=== PATIENT | male | born 1940 | race Caucasian/White ===

== ENCOUNTER 2017-08-08 07:10 | Inpatient (IN) ==
--- NOTE | 2017-08-08 07:21 | Emergency Department Note ---
Disposition Clinical Impression: Failure of outpatient treatment, Hypoxia, New onset seizure Community acquired pneumonia Qualifiers: Laterality: unspecified laterality Qualified Code(s): J18.9 - Pneumonia, unspecified organism Pulmonary embolism Qualifiers: Pulmonary embolism type: other Chronicity: acute Acute cor pulmonale presence: without acute cor pulmonale Qualified Code(s): I26.99 - Other pulmonary embolism without acute cor pulmonale Disposition: Admitted As Inpatient Condition: Fair Referrals: NONE,PCP [Non-Partnered Physician] - Forms: ED Satisfaction Letter Seizure HPI - General Chief Complaint: ED Seizure Stated Complaint: possible seizure Time Seen by Provider: 08/08/17 07:17 Source: family, EMS, other (Home nurse) Mode of arrival: EMS Limitations: altered mental status, physical limitation Nursing Notes Reviewed: Yes Vital Signs Reviewed: Yes - History of Present Illness HPI Narrative: Patient reportedly has been in his baseline health. He was evaluated 7-10 days ago for possible pneumonia and had x-rays of his chest and back. He is completing course of doxycycline after receiving Rocephin for a right lower lobe pneumonia. He this morning had been taken to the bathroom and was sitting on a toilet seat for an aid to shave him. Reportedly got a pained expression on his face leaned forward, yelled and then extended back against the back of the toilet and was thrashing around for a couple minutes. He was not responding during that time and he then was sluggish for 7-8 minutes. He did not bite his tongue or have any bladder or bowel incontinence. He has no history of any similar type episodes. His reported to otherwise have "no after effects". He did not sustain any injury other than pushing his back against the tank of the toilet. He did not fall off the toilet or sustain other injury. He was not conversive for the caretakers but did start to talk for the transport here. On arrival here he is smiling and answering simple questions. He denies headache or visual changes. He denies neck pain, back pain, chest pain or shortness of breath. He is saturating however at 88-90% on 2 L and he is not usually on home oxygen. He denies abdominal pain or nausea. He denies any extremity complaints. He does follow all commands. He will turn to look at his here and is able to articulate that he does not know who it is. This reportedly is new for him. Family states there is a strong family history of Alzheimer's and he has been declining for 6 years. He has signed a living will which they clearly described as a DNR CCA status. The family member here, spouse, states that she is POA. Pt Subjective Complaint: possible seizure Onset (ago): Just [employer] Description of Episode: loss of consciousness, tonic-clonic movement -: minutes(s) Witnessed: yes - by bystander Associated trauma secondary to event: No Seizure History: none Place: home Possible Precipitating Event: none Associated symptoms: Reports: denies other symptoms, confusion (Chronic with severe Alzheimer's). Denies: chest pain, cough, diaphoresis, fever/chills, loss of appetite, malaise, rash, shortness of breath, syncope, weakness Pain Scale: 0 Treatments prior to arrival: none - Related Data Home Medications Medication Instructions Recorded Confirmed BuPROPion XL (24 HR) [Wellbutrin 150 mg PO DAILY 08/08/17 08/08/17 XL] Doxycycline 100 mg PO BID 08/08/17 08/08/17 Sertraline [Zoloft] 50 mg PO DAILY 08/08/17 08/08/17 Allergies Allergy/AdvReac Type Severity Reaction Status Date / Time No Known Allergies Allergy Verified 06/29/17 22:21 All systems ED: reviewed and negative except as stated. Past Medical History - Past Medical History Source: old records reviewed, obtained from family, nursing notes reviewed Medical history: Reports: dementia, kidney stones, other Surgical history: Reports: no surgical history Psychiatric history: Reports: depression - Social History Smoking Status: Never smoker Smokeless Tobacco Status: No Alcohol use: Reports: none Drug use: Reports: none Physical Exam - General Limitations: altered mental status, physical limitation, age, other (Severe Alzheimer's) General appearance: alert, in no apparent distress - Head Head exam: atraumatic, normocephalic, normal inspection - Eye Eye exam: Present: normal appearance, PERRL, EOMI. Absent: scleral icterus, conjunctival injection - ENT ENT exam: normal exam, normal oropharynx, mucous membranes moist - Neck Neck exam: Present: normal inspection, full ROM, trachea midline - Chest Chest inspection: Present: normal inspection, symmetric chest wall rise, other ( Small linear contusion in the mid scapular region of his back.) - Respiratory Respiratory exam: Present: normal lung sounds bilaterally. Absent: respiratory distress, wheezes, prolonged expiratory phase - Cardiovascular Cardiovascular exam: Present: regular rate, normal rhythm, normal heart sounds. Absent: tachycardia - Abdominal Exam Abdominal exam: Present: soft, Non-Tender, normal bowel sounds. Absent: tenderness, distention, guarding, rebound, rigidity - Extremities Exam Extremities exam: Present: normal inspection, full ROM, normal capillary refill. Absent: tenderness, pedal edema - Expanded Lower Extremity Exam Neurovascular/Tendon exam: Present: normal capillary refill. Absent: motor deficit, sensory deficit, tendon deficit Gait: not tested/not observed - Back Exam Back exam: Present: normal inspection, full ROM, other (Small linear contusion in the mid scapular region without tenderness.). Absent: tenderness, muscle spasm, paraspinal tenderness, vertebral tenderness - Neurological Exam Neurological exam: Present: alert, other (Patient is smiling, interactive and answering simple questions.). Absent: oriented X3, motor sensory deficit - Psychiatric Psychiatric exam: Present: normal affect, normal mood - Skin Skin exam: Present: warm, dry, intact, normal color. Absent: rash, diaphoresis , pallor Course Course Narrative: Care has been discussed with the patien's and his nurse/professor/nurse anesthetist. He appears to have a persistent pneumonia with failure of outpatient treatment and hypoxia. He has been written for IV fluids, blood cultures, lactic acid as well as starting Rocephin and azithromycin. CT head does not appear to show bleed, shift, mass, edema or other acute structural process. They understand that he will ultimately need further inpatient observation for his respiratory status during which time he can be observed with neuro checks. 0920: Patient has completed a CT PE study with a right sided pulmonary embolism per radiology read. He has been written for DuoNeb aerosol as well as started on Lovenox. All results were discussed with his , nurse professor/nurse anesthetist as well as his daughter who has arrived. They are comfortable with his continued treatment at this facility. I talked to him about possibly anticoagulation in an end-stage Alzheimer's patient due to the risks of anticoagulation. Understanding the need to talk about the risk benefit with Dr. Neville to determine the most practical and appropriate treatment. I discussed care with Dr. Neville who agrees with observation at this facility with continuation of the Lovenox twice a day as well as continued IV fluids, antibiotics and seizure precautions. Verbal orders have been obtained for his admission. Vital Signs Temperature 98.0 F 08/08/17 07:14 Pulse Rate 78 08/08/17 07:14 Respiratory Rate 18 08/08/17 07:14 Blood Pressure 128/77 08/08/17 07:14 O2 Sat by Pulse Oximetry 90 08/08/17 07:14 Temperature 98.0 F 08/08/17 07:14 Pulse Rate 76 08/08/17 09:00 Respiratory Rate 18 08/08/17 09:00 Blood Pressure 124/76 08/08/17 09:00 O2 Sat by Pulse Oximetry 95 08/08/17 09:00 Oxygen Delivery Oxygen Delivery Nasal Cannula Seizure - Differential Diagnosis Likely: generalized seizure, new onsite seizure - Medical Records Medical records reviewed: Yes I reviewed the patient's medical records. XR/XR chest 2V IMPRESSION: Small bilateral pleural effusions along with mild bibasilar likely atelectasis or infiltrates. D/ / 07/28/2017 14:16:26 Marlon Coleman MD / brea The patient also had received 2 view x-ray of the abdomen as well as thoracic and lumbar spine imaging that were all unremarkable. He had stable degenerative changes on the spine. - Lab Data Lab results reviewed: Yes I reviewed the patient's lab results. Result diagrams: 08/08/17 07:44 08/08/17 07:44 Lab Results 08/08/17 08/08/17 08/08/17 Range/Units 07:44 07:44 07:44 WBC 7.3 (4.3-11.1) K/mcL RBC 4.75 (4.19-5.50) M/mcL Hgb 14.9 (12.9-16.9) g/dL Hct 44.6 (37.5-50.1) % MCV 93.9 (83.0-100.0) fL MCH 31.4 (28.0-33.3) pg MCHC 33.4 (31.6-35.5) g/dL RDW 12.7 (11.5-14.5) % Plt Count 236 (140-400) K/mcL MPV 8.9 L (9.4-12.4) fL Immature Gran % 3.5 (0-4) % Seg Neutrophils % 76.2 % Lymphocytes % 14.2 % Monocytes % 4.2 % Eosinophils % 1.6 % Basophils % 0.3 % Neutrophils # 5.6 (1.6-8.9) K/mcL Lymphocytes # 1.0 (0.6-4.6) K/mcL Monocytes # 0.3 (0.0-1.3) K/mcL Eosinophils # 0.1 (0.0-0.6) K/mcL Basophils # 0.0 (0.0-0.2) K/mcL PT 11.2 (9.4-12.1) Seconds INR 1.0 APTT 24.2 L (26.0-36.0) Seconds D-Dimer (0-500) ng/mLFEU VBG Lactic Acid (0.5-2.2) mmol/L Sodium 141 (136-145) mEq/L Potassium 4.2 (3.5-4.5) mEq/L Chloride 108 (98-109) mEq/L Carbon Dioxide 21 (19-29) mEq/L BUN 16 (8-26) mg/dL Creatinine 1.18 (0.72-1.25) mg/dL Est GFR ( Amer) > 60 (> 60) Est GFR (Non-Af Amer) > 60 (> 60) BUN/Creatinine Ratio 14 (6-26) Glucose 118 H (70-99) mg/dL Calculated Osmolality 294 (280-300) Calcium 9.0 (8.6-10.8) mg/dL Total Bilirubin 0.6 (0.2-1.2) mg/dL Direct Bilirubin 0.2 (0.0-0.5) mg/dL Indirect Bilirubin 0.4 (0.0-1.2) mg/dL AST 31 (5-34) Units/L ALT 35 (0-55) Units/L Alkaline Phosphatase 64 (38-126) Units/L Troponin I (0-0.03) ng/mL Serum Total Protein 6.7 (6.0-8.3) g/dL Albumin 3.4 L (3.5-5.0) g/dL Globulin 3.3 (2.4-3.5) g/dL Albumin/Globulin Ratio 1.0 L (1.1-2.2) Urine Color (Yellow) Urine Clarity (Clear) Urine pH (5.0-8.0) pH Units Ur Specific [place] (1.010-1.025) Urine Protein (Neg-Trace) mg/dL Urine Glucose (UA) (Normal) mg/dL Urine Ketones (Negative) mg/dL Urine Blood (Negative) Urine Nitrite (Negative) Urine Bilirubin (Negative) Urine Urobilinogen (Normal) mg/dL Ur Leukocyte Esterase (Negative) Urine Microscopic RBC (0-3) per hpf Urine Microscopic WBC (0-3) per hpf Ur Squamous Epith Cells (None-Few) per lpf Amorphous Sediment (Few) Urine Bacteria (None-Few) per hpf Hyaline Casts (None-Few) per lpf Urine Mucus (Few) Ur Culture Indicated? (NO) 08/08/17 08/08/17 08/08/17 Range/Units 07:44 07:44 08:21 WBC (4.3-11.1) K/mcL RBC (4.19-5.50) M/mcL Hgb (12.9-16.9) g/dL Hct (37.5-50.1) % MCV (83.0-100.0) fL MCH (28.0-33.3) pg MCHC (31.6-35.5) g/dL RDW (11.5-14.5) % Plt Count (140-400) K/mcL MPV (9.4-12.4) fL Immature Gran % (0-4) % Seg Neutrophils % % Lymphocytes % % Monocytes % % Eosinophils % % Basophils % % Neutrophils # (1.6-8.9) K/mcL Lymphocytes # (0.6-4.6) K/mcL Monocytes # (0.0-1.3) K/mcL Eosinophils # (0.0-0.6) K/mcL Basophils # (0.0-0.2) K/mcL PT (9.4-12.1) Seconds INR APTT (26.0-36.0) Seconds D-Dimer 11804 H (0-500) ng/mLFEU VBG Lactic Acid 2.3 H (0.5-2.2) mmol/L Sodium (136-145) mEq/L Potassium (3.5-4.5) mEq/L Chloride (98-109) mEq/L Carbon Dioxide (19-29) mEq/L BUN (8-26) mg/dL Creatinine (0.72-1.25) mg/dL Est GFR ( Amer) (> 60) Est GFR (Non-Af Amer) (> 60) BUN/Creatinine Ratio (6-26) Glucose (70-99) mg/dL Calculated Osmolality (280-300) Calcium (8.6-10.8) mg/dL Total Bilirubin (0.2-1.2) mg/dL Direct Bilirubin (0.0-0.5) mg/dL Indirect Bilirubin (0.0-1.2) mg/dL AST (5-34) Units/L ALT (0-55) Units/L Alkaline Phosphatase (38-126) Units/L Troponin I 0.00 (0-0.03) ng/mL Serum Total Protein (6.0-8.3) g/dL Albumin (3.5-5.0) g/dL Globulin (2.4-3.5) g/dL Albumin/Globulin Ratio (1.1-2.2) Urine Color (Yellow) Urine Clarity (Clear) Urine pH (5.0-8.0) pH Units Ur Specific [place] (1.010-1.025) Urine Protein (Neg-Trace) mg/dL Urine Glucose (UA) (Normal) mg/dL Urine Ketones (Negative) mg/dL Urine Blood (Negative) Urine Nitrite (Negative) Urine Bilirubin (Negative) Urine Urobilinogen (Normal) mg/dL Ur Leukocyte Esterase (Negative) Urine Microscopic RBC (0-3) per hpf Urine Microscopic WBC (0-3) per hpf Ur Squamous Epith Cells (None-Few) per lpf Amorphous Sediment (Few) Urine Bacteria (None-Few) per hpf Hyaline Casts (None-Few) per lpf Urine Mucus (Few) Ur Culture Indicated? (NO) 08/08/17 Range/Units 08:24 WBC (4.3-11.1) K/mcL RBC (4.19-5.50) M/mcL Hgb (12.9-16.9) g/dL Hct (37.5-50.1) % MCV (83.0-100.0) fL MCH (28.0-33.3) pg MCHC (31.6-35.5) g/dL RDW (11.5-14.5) % Plt Count (140-400) K/mcL MPV (9.4-12.4) fL Immature Gran % (0-4) % Seg Neutrophils % % Lymphocytes % % Monocytes % % Eosinophils % % Basophils % % Neutrophils # (1.6-8.9) K/mcL Lymphocytes # (0.6-4.6) K/mcL Monocytes # (0.0-1.3) K/mcL Eosinophils # (0.0-0.6) K/mcL Basophils # (0.0-0.2) K/mcL PT (9.4-12.1) Seconds INR APTT (26.0-36.0) Seconds D-Dimer (0-500) ng/mLFEU VBG Lactic Acid (0.5-2.2) mmol/L Sodium (136-145) mEq/L Potassium (3.5-4.5) mEq/L Chloride (98-109) mEq/L Carbon Dioxide (19-29) mEq/L BUN (8-26) mg/dL Creatinine (0.72-1.25) mg/dL Est GFR ( Amer) (> 60) Est GFR (Non-Af Amer) (> 60) BUN/Creatinine Ratio (6-26) Glucose (70-99) mg/dL Calculated Osmolality (280-300) Calcium (8.6-10.8) mg/dL Total Bilirubin (0.2-1.2) mg/dL Direct Bilirubin (0.0-0.5) mg/dL Indirect Bilirubin (0.0-1.2) mg/dL AST (5-34) Units/L ALT (0-55) Units/L Alkaline Phosphatase (38-126) Units/L Troponin I (0-0.03) ng/mL Serum Total Protein (6.0-8.3) g/dL Albumin (3.5-5.0) g/dL Globulin (2.4-3.5) g/dL Albumin/Globulin Ratio (1.1-2.2) Urine Color Yellow (Yellow) Urine Clarity Clear (Clear) Urine pH 5.0 (5.0-8.0) pH Units Ur Specific [place] >= 1.030 H (1.010-1.025) Urine Protein 30 H (Neg-Trace) mg/dL Urine Glucose (UA) Normal (Normal) mg/dL Urine Ketones Negative (Negative) mg/dL Urine Blood Trace-intact H (Negative) Urine Nitrite Negative (Negative) Urine Bilirubin Negative (Negative) Urine Urobilinogen Normal (Normal) mg/dL Ur Leukocyte Esterase Negative (Negative) Urine Microscopic RBC 3-5 H (0-3) per hpf Urine Microscopic WBC 0-3 (0-3) per hpf Ur Squamous Epith Cells Few (None-Few) per lpf Amorphous Sediment Moderate H (Few) Urine Bacteria Few (None-Few) per hpf Hyaline Casts Few (None-Few) per lpf Urine Mucus Moderate H (Few) Ur Culture Indicated? NO (NO) - Radiology Data Radiology results reviewed: Yes I reviewed the patient's radiology results. Single view chest x-ray is performed. This shows some hypoinflation with patchy infiltrates consistent with multifocal pneumonia. Do not see evidence for failure, effusion or pneumothorax. The cardiac silhouette is not significantly enlarged. This is on my interpretation. CT head is performed. This is reviewed on bone and soft tissue windows. There is no evidence for acute intracranial bleed, shift, mass or edema. Patient does have cerebral atrophy present. Mastoids and sinuses appear normal. There is no fracture evident. This is on my interpretation. CT chest was performed with IV contrast. This demonstrates multifocal patchy infiltrates primarily in the bases. I do not see evidence for acute Impressions Chest X-Ray 08/08/17 07:26 IMPRESSION: 1. Poorly expanded lungs. 2. Left basilar opacity is likely atelectasis. D/ / Jaiden Tirado MD / Jaiden Tirado MD Interpreting Provider: Jaiden Tirado MD Head CT 08/08/17 07:26 IMPRESSION: 1. No acute intracranial abnormality. 2. Mild periventricular and subcortical white matter hypodensities are commonly due to chronic small vessel ischemic disease. D/ / Jaiden Tirado MD / Jaiden Tirado MD Interpreting Provider: Jaiden Tirado MD Chest CTA 08/08/17 08:22 IMPRESSION: 1. Acute pulmonary embolism at the 1st branch of the right main pulmonary artery. No evidence of right heart strain. 2. Atelectasis in the bilateral lower lungs. 3. Esophagus appears thickened. This could be due to esophagitis. Upper endoscopy may be considered. Critical results were called by Dr. Jaiden Tirado to Dr. Azael Bertrand on 08/08/2017 at 09:15. D/ / Jaiden Tirado MD / Jaiden Tirado MD Interpreting Provider: Jaiden Tirado MD pulmonary embolism, significant effusion or pneumothorax. This is on my interpretation. - EKG Data EKG attestation: Yes I reviewed and interpreted this EKG. EKG shows normal: sinus rhythm, intervals, QRS complexes, ST-T waves Rate: normal (76) [place]/QRS: left axis deviation Interpretation: no acute changes Critical Care Time Critical Care Time: Yes Total Critical Care Time: 70 Attestation: As this patient did present with signs and symptoms of potential life- threatening illness requiring my urgent intervention, total critical care time in this patient's care has been 70 minutes, not withstanding separately reportable procedures.
[2017-08-08 07:54] LABS: Basophils % 0.3 %; Eosinophils # 0.1 K/mcL (0.0-0.6); Eosinophils % 1.6 %; Hematocrit 44.6 % (37.5-50.1); Hemoglobin 14.9 g/dL (12.9-16.9); Immature Granulocytes % 3.5 % (0-4); Lymphocytes % 14.2 %; Mean Corpuscular HGB Conc 33.4 g/dL (31.6-35.5); Mean Corpuscular Hemoglobin 31.4 pg (28.0-33.3); Mean Corpuscular Volume 93.9 fL (83.0-100.0); Mean Platelet Volume 8.9 fL (9.4-12.4); Monocytes # 0.3 K/mcL (0.0-1.3); Monocytes % 4.2 %; Neutrophils # 5.6 K/mcL (1.6-8.9); Platelet Count 236 K/mcL (140-400); Red Blood Count 4.75 M/mcL (4.19-5.50); Red Cell Distribution Width 12.7 % (11.5-14.5); Segmented Neutrophils % 76.2 %
[2017-08-08 07:58] LABS: Prothrombin Time 11.2 Seconds (9.4-12.1)
[2017-08-08 08:01] LABS: Activated Partial Thrombo Time 24.2 Seconds (26.0-36.0)
[2017-08-08] MEDS ORDERED: Azithromycin 250 MG TABLET PO ONE (08:07)
[2017-08-08] MEDS ORDERED: 0.9 % Sodium Chloride 1,000 ML IVC SCH ×2 (08:15→11:05)
[2017-08-08 08:19] LABS: Alanine Aminotransferase 35 Units/L (0-55); Albumin 3.4 g/dL (3.5-5.0); Alkaline Phosphatase 64 Units/L (38-126); Aspartate Amino Transferase 31 Units/L (5-34); BUN/Creatinine Ratio 14 (6-26); Bilirubin,Direct 0.2 mg/dL (0.0-0.5); Bilirubin,Indirect 0.4 mg/dL (0.0-1.2); Bilirubin,Total 0.6 mg/dL (0.2-1.2); Blood Urea Nitrogen 16 mg/dL (8-26); Carbon Dioxide 21 mEq/L (19-29); Chloride 108 mEq/L (98-109); Globulin 3.3 g/dL (2.4-3.5); Glucose 118 mg/dL (70-99); Osmolality,Calculated 294 (280-300); Potassium 4.2 mEq/L (3.5-4.5); Sodium 141 mEq/L (136-145); Total Protein 6.7 g/dL (6.0-8.3); eGFR For African Americans > 60 (> 60); eGFR For Non-African Americans > 60 (> 60)
[2017-08-08 08:41] LABS: Bilirubin,Urine Negative (Negative); Blood,Urine Trace-intact (Negative); Clarity,Urine Clear (Clear); Color,Urine Yellow (Yellow); Glucose,Urine (UA) Normal (Normal); Ketones,Urine Negative (Negative); Leukocyte Esterase,Urine Negative (Negative); Nitrite,Urine Negative (Negative); Protein,Urine 30 mg/dL (Neg-Trace); Specific Gravity,Urine >= 1.030 (1.010-1.025); Urobilinogen,Urine Normal (Normal)
[2017-08-08 08:56] LABS: Amorphous Sediment,Urine Moderate (Few); Bacteria,Urine Few per hpf (None-Few); Hyaline Casts,Urine Few per lpf (None-Few); Mucus,Urine Moderate (Few); Squamous Epithelial Cell,Urine Few per lpf (None-Few); WBC,Urine 0-3 per hpf (0-3)
[2017-08-08] MEDS ORDERED: Ipratropium/Albuterol Neb 3 ML IH ONE (09:20)
[2017-08-08] MEDS ORDERED: *HR* Enoxaparin 100 MG/ML SYRINGE SQ STA (09:20)
[2017-08-08] MEDS ORDERED: Naloxone 0.4 MG/ML INJ IVP PRN (11:05)
[2017-08-08] MEDS ORDERED: MOM Conc 10 ML UD.LIQ PO PRN (11:05)
[2017-08-08] MEDS ORDERED: Ondansetron 4 MG/2 ML VIAL IVP PRN (11:05)
[2017-08-08] MEDS ORDERED: Acetaminophen 325 MG TABLET PO PRN (11:05)
[2017-08-08] MEDS ORDERED: Ipratropium/Albuterol Neb 3 ML IH SCH (11:05)
[2017-08-08] MEDS ORDERED: Albuterol 2.5 MG/3 ML NEBULIZER IH PRN (11:05)
[2017-08-08] MEDS ORDERED: *HR* LORazepam 2 MG/ML VIAL IVP PRN (11:05)
--- NOTE | 2017-08-08 13:21 | Internal Med History&Physical ---
Date of Encounter: 08/08/17 Time of Encounter: 12:45 Assessment and Plan (1) Pulmonary embolism Current visit: Yes Status: Acute Etiology not determined. Will order hypercoagulable workup labs. He has been started on Lovenox through emergency room. I will give him Xarelto. Qualifiers: Pulmonary embolism type: other Chronicity: acute Acute cor pulmonale presence: without acute cor pulmonale Qualified Code(s): I26.99 - Other pulmonary embolism without acute cor pulmonale (2) New onset seizure Current visit: Yes Status: Acute Possibly secondary to hypoxia from PE. Will observe without starting AED at this time. Internal Medicine - H&P: HPI Chief complaint: Seizure with syncope Admitted From: Home Plans for Post Hospital Care: Home History of present illness: Mr. Garcia is a 77 year old male who was brought to the hospital after caregivers reported he had a sudden scream as if in pain followed by a seizure and postictal condition while having routine care given by providers at his [facility]. He was brought to emergency room and evaluated. There was mild abrasion of the skin of the back from the event. D-dimer returned markedly elevated and CTA of chest showed right main pulmonary artery embolism. He was given therapeutic dose Lovenox and admitted to [facility] floor for ongoing care needs. He has advanced dementia and could not supply any history. His and family supply the history. They report no past history of DVT pulmonary emboli or seizures. They report no change in his activity level and states he walks frequently in the house. He has not had noticeable edema. He does not have documented malignancies. There is no family history of coagulopathy. The patient's mother had gastric cancer. Past Med Surg Social Fam HX - Past Medical History Medical history: dementia, kidney stones, other Psychiatric history: depression - Past Surgical History Surgical History: no surgical history - Social History Smoking Status: Never smoker Smokeless Tobacco Status: No Alcohol use: none Drug use: none Internal Medicine - H&P: Meds BuPROPion XL (24 HR) [Wellbutrin XL] 150 mg PO DAILY 08/08/17 [History] Doxycycline 100 mg PO BID 08/08/17 [History] Sertraline [Zoloft] 50 mg PO DAILY 08/08/17 [History] 3 Allergy/AdvReac Type Severity Reaction Status Date / Time No Known Allergies Allergy Verified 06/29/17 22:21 All Systems PM: A 10-system review of systems was performed and is negative for pertinent findings except as documented above in the HPI. Review of systems: Gen.: His weight has been stable past few months Cardiovascular: Family denies DE hypertension heart failure angina DVT or previous pulmonary embolism Respiratory: He is a lifelong nonsmoker and has no known chronic lung disease GI: He had an ulcer of the stomach approximately one year ago. EGD was done at a [facility] where he was referred with no known malignancy found. They deny known disorders of his liver gallbladder or exocrine pancreas. : No history of hematuria dysuria or kidney stones Neurologic: He was diagnosed with dementia in 2010. He has had no large distribution strokes or seizures. Endocrine: He has hyperlipidemia but no known diabetes or thyroid disease Hematology/oncology: No history of blood disorders cancers or anemia Psychiatric: He has occasional agitation. He does not have history of mental health issues. [place] skeletal: He has minimal arthritis and has complained of leg cramps in the past. He does not have known gout. - Constitutional Vitals: Temp Pulse Resp BP Pulse Ox 97.8 F 86 20 128/84 92 08/08/17 11:20 08/08/17 11:20 08/08/17 11:20 08/08/17 11:20 08/08/17 11:20 Exam: Gen.: He is a well-developed well-nourished male lying quietly in bed who appears in no acute distress. He denies pain or dyspnea. HEENT: Head is atraumatic and normocephalic. Eyes: EOMI. There is no scleral icterus. Mouth: Mucosa is moist. Neck: Supple and nontender. There is no thyromegaly or adenopathy noted. Heart: Regular without murmurs gallops or ectopics. Lungs: No wheezes or crackles are heard. Abdomen: Soft and nontender. No masses or guarding noted. Extremities: There is no cyanosis edema or clubbing noted. Dorsalis pedis and posterior tibial pulses are 1-2 over 2 bilaterally. Neurologic: Mental status: He is minimally talkative and could not give any reliable history. Cranial nerves: Smile is symmetric. Forehead wrinkles bilaterally. Tongue protrudes midline. EOMI. Motor: He has equal tone on passive range of motion of his arms. No further neurologic testing is attempted. Skin: Warm and dry. He has very superficial abrasion on his back presumably from the seizure activity Internal Med - H&P Results - Labs CBC & Chem 7: 08/08/17 07:44 08/08/17 07:44
[2017-08-08] MEDS ORDERED: *HR* Enoxaparin 100 MG/ML SYRINGE SQ SCH (18:00)
[2017-08-08] MEDS: *HR* Rivaroxaban 15 MG TABLET PO SCH (21:42)
[2017-08-09 08:01] VITALS: BP 114/73
[2017-08-09] MEDS: *HR* Rivaroxaban 15 MG TABLET PO SCH (08:47)
[2017-08-09] MEDS ORDERED: BuPROPion XL (24 HR) 150 MG TABLET PO SCH (09:00)
[2017-08-09] MEDS ORDERED: Azithromycin 250 MG TABLET PO SCH (09:00)
--- NOTE | 2017-08-09 10:44 | Discharge Summary ---
Date of Encounter: 08/09/17 Time of Encounter: 10:20 - Discharge Diagnosis (1) Pulmonary embolism Priority: Primary Status: Acute Qualifiers: Pulmonary embolism type: other Chronicity: acute Acute cor pulmonale presence: without acute cor pulmonale Qualified Code(s): I26.99 - Other pulmonary embolism without acute cor pulmonale (2) New onset seizure Priority: Secondary Status: Acute - Discharge Medications Prescriptions: Rivaroxaban [Xarelto] 15 mg PO BID #40 tab Home Medications: BuPROPion XL (24 HR) [Wellbutrin Xl] 150 mg PO DAILY 08/08/17 [History] Sertraline [Zoloft] 50 mg PO DAILY 08/08/17 [History] Rivaroxaban [Xarelto] 15 mg PO BID #40 tab 08/09/17 [Rx] Allergies/Adverse Reactions: 3 Allergy/AdvReac Type Severity Reaction Status Date / Time No Known Allergies Allergy Verified 06/29/17 22:21 Date of admission: 08/08/17 18:16 Primary care physician: Rashaad Underwood DO - Patient Status Disposition: Home, Self-Care Condition: Fair Overall status at discharge: patient is progressing back to baseline - Discharge Instructions Follow Up With: Rashaad Underwood DO [Primary Care Provider] - 1 week - Diet and Activity Activity: resume usual activities as tolerated Diet: advance to your usual diet Hospital course: Mr. Garcia is a 77 year old male who was brought to the hospital after caregivers reported he had a sudden scream as if in pain followed by a seizure and postictal condition while having routine care given by providers at his [facility]. He was brought to emergency room and evaluated. There was mild abrasion of the skin of the back from the event. D-dimer returned markedly elevated and CTA of chest showed right main pulmonary artery embolism. He was given therapeutic dose Lovenox and admitted to [facility] for ongoing care needs. Initial orders were written by the emergency room physician. I saw him on August 08 and performed the history and physical. I started him on Xarelto 15 mg twice a day. He will continue on this dose for 3 weeks and then transition to 20 mg daily. I wrote a prescription for the 15 mg pill. His PCP Dr. Underwood can prescribe the 20 mg dose. Labs for hypercoagulability were drawn with all results pending at time of discharge. He had no further seizures or syncopal episodes. His vital signs were stable and on August 09 I felt he was stable for discharge back to his [facility]. He will follow with his PCP Dr. Underwood within 1 week. - Time Spent with Patient Total time spent providing and/or coordinating discharge services: - Constitutional Vitals: Temp Pulse Resp BP Pulse Ox 98.7 F 69 18 114/73 92 08/09/17 08:01 08/09/17 08:01 08/09/17 08:01 08/09/17 08:01 08/09/17 08:01
--- NOTE | 2017-08-09 21:55 | Electrocardiograph Report ---
[place] [id number] Test Date: 2017-08-08 Pat Name: Les Garcia Department: [id number] Room: [facility] Gender: M Transfer Pumper: [id number] : 1940 Requested By: Azael Bertrand Order Number: [id number] Reading MD: Isael Cotter MD Measurements Intervals [place] Rate: 76 P: 59 TN: 165 QRS: -21 QRSD: 92 T: 24 QT: 370 QTc: 400 Interpretive Statements SINUS RHYTHM BORDERLINE LEFT AXIS DEVIATION Electronically Signed On 08-09-2017 21:53:59 EDT by Isael Cotter MD
[2017-08-12 07:35] LABS: Protein S, Functional 114 % (66-143)
[2017-08-12 07:36] LABS: Antithrombin III, Activity 101 % (76-128); Protein C, Functional 140 % (83-168)
[2017-08-12 20:18] LABS: Prothrombin G20210A Specimen WHOLE BLOOD
[2017-08-12 20:33] LABS: FACV Specimen WHOLE BLOOD
[2017-08-13 12:23] LABS: Prothrombin G20210A Mut Result NEGATIVE
[2017-08-13 12:26] LABS: Fac V Leiden R506Q Mut Result NEGATIVE
[2017-08-23 07:24] LABS: Antiphospholipid IgG High Spec 5 GPL (0-14); Antiphospholipid IgM High Spec 0 MPL (0-14)
== END 2017-08-09 13:17 | DRG 176 ==
LOC: EMEROOPIK 07:10 → INPPIK 07:10
PROVIDERS: ADMIT Internal Medicine; ATTEND Internal Medicine

== ENCOUNTER 2018-11-17 13:21 | Inpatient (IN) ==
--- NOTE | 2018-11-17 13:32 | Emergency Department Note ---
Disposition Clinical Impression: Influenza A Left lower lobe pneumonia Qualifiers: Pneumonia type: due to unspecified organism Qualified Code(s): J18.1 - Lobar pneumonia, unspecified organism Disposition: Admitted As Inpatient Condition: Fair Referrals: Jean Pierre Rahman MD [Primary Care Provider] - Forms: ED Satisfaction Letter URI/Sore Throat HPI - General Chief Complaint: ED Upper Respiratory Infection Stated Complaint: "bad cold" Time Seen by Provider: 11/17/18 13:26 Source: patient, family Mode of arrival: private vehicle Limitations: no limitations Nursing Notes Reviewed: Yes Vital Signs Reviewed: Yes - History of Present Illness HPI Narrative: Patient started yesterday with a mild cough became worse over the night. This morning the cough sounded coarse and rattly and he had a temperature 100.8. Advised that he has "Alzheimer's and can be over dramatic". They felt that he was "getting a cold" but were concerned with the fever and a previous history of some recurrent pneumonias. He states that his been eating and drinking well and has not had history of aspiration. He has not been severely short of breath has not been having abdominal pain, nausea or diarrhea. He has not had recent ill exposure nor rashes or joint pains. He does not have history of asthma or COPD. 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 He has not had a new lotions any swelling, immobilization, injury, pain or discoloration. His last INR was 2.5 last Wednesday. He has been on his normal medications. Pt Subjective Complaint: fever, flu symptoms Onset (ago): hour(s) Duration: gradually worsening Severity: moderate Improves with: rest Worsens with: exertion Associated symptoms: Reports: fever, chills, cough. Denies: voice changes, myalgias, diaphoresis, headache, rhinorrhea, nasal congestion, sore throat, stiff neck, chest pain, shortness of breath, abdominal pain, nausea, vomiting, diarrhea, dysuria, rash, epistaxis, ear pain - Related Data Home Medications Medication Instructions Recorded Confirmed Folic Acid 1 mg PO DAILY 02/15/18 11/17/18 Lovastatin [Altoprev] 20 mg PO HS 02/15/18 11/17/18 Cyanocobalamin (Vitamin B-12) 1,000 mcg PO DAILY 08/28/18 11/17/18 [Vitamin B12] Phenytoin ER [Dilantin ER] 200 mg PO HS 08/28/18 11/17/18 Bulmaro-Citrate Plus Vitamin D Tab 09/12/18 Warfarin [Coumadin] 6 mg PO DAILY 11/17/18 11/17/18 Allergies Allergy/AdvReac Type Severity Reaction Status Date / Time No Known Allergies Allergy Verified 09/12/18 15:19 All systems ED: reviewed and negative except as stated. URI PMH - Past Medical History Medical history: Reports: dementia, kidney stones, pulmonary embolus, seizures Surgical history: Reports: no surgical history Psychiatric history: Reports: depression - Social History Smoking Status: Never smoker Alcohol use: Reports: none Drug use: Reports: none Physical Exam - General Limitations: altered mental status, age General appearance: alert, in no apparent distress - Head Head exam: atraumatic, normocephalic, normal inspection - Eye Eye exam: Present: normal appearance, PERRL, EOMI. Absent: scleral icterus, conjunctival injection - ENT ENT exam: normal exam, normal oropharynx, mucous membranes moist - Neck Neck exam: Present: normal inspection, full ROM, trachea midline. Absent: tenderness, meningismus, lymphadenopathy - Chest Chest inspection: Present: normal inspection, symmetric chest wall rise - Respiratory Respiratory exam: Present: normal lung sounds bilaterally. Absent: respiratory distress, wheezes, prolonged expiratory phase - Cardiovascular Cardiovascular exam: Present: regular rate, normal rhythm, tachycardia, normal heart sounds - Abdominal Exam Abdominal exam: Present: soft, Non-Tender, normal bowel sounds. Absent: tenderness, distention, guarding, rebound, rigidity - Extremities Exam Extremities exam: Present: normal inspection, full ROM, normal capillary refill. Absent: tenderness, pedal edema, calf tenderness - Expanded Lower Extremity Exam Neurovascular/Tendon exam: Present: normal capillary refill. Absent: motor deficit, sensory deficit, tendon deficit Gait: not tested/not observed - Neurological Exam Neurological exam: Present: alert. Absent: motor sensory deficit - Psychiatric Psychiatric exam: Present: normal affect, normal mood. Absent: agitated, anxious - Skin Skin exam: Present: warm, dry, intact, normal color. Absent: rash, cyanosis, diaphoresis, pallor Course Course Narrative: 1405: Radiologist reads atelectasis versus pneumonia in the left base. This tachycardia, fever and cough he has been started on IV fluids as well as IV Rocephin and azithromycin. We are awaiting return of influenza swab and lab work. Given his age and disabilities he will likely need inpatient observation. This has been discussed with the patient's family who are in agreement. 1410: The patient's nasal swab is positive for influenza A. He has been written for Tamiflu and a dose of acetaminophen. 1440: With return of all lab tests, care is discussed with Dr. Neville. He is agreeable with observation and is given verbal orders. Care is being coordinated to inpatient status. Vital Signs Temperature 101.4 F H 11/17/18 13:22 Pulse Rate 111 11/17/18 13:22 Respiratory Rate 22 11/17/18 13:22 Blood Pressure 111/84 11/17/18 13:22 O2 Sat by Pulse Oximetry 98 11/17/18 13:22 Temperature 101.4 F H 11/17/18 13:22 Pulse Rate 109 11/17/18 14:14 Respiratory Rate 12 11/17/18 14:14 Blood Pressure 95/64 11/17/18 14:14 O2 Sat by Pulse Oximetry 96 11/17/18 14:14 Oxygen Delivery Oxygen Delivery Room Air Upper Respiratory Infection - Differential Diagnosis Differential Diagnosis: Likely: other viral infection, bronchitis, pneumonia - Medical Records Medical records reviewed: Yes I reviewed the patient's medical records. - Lab Data Lab results reviewed: Yes I reviewed the patient's lab results. Lab results narrative: Influenza A is positive. Result diagrams: 11/17/18 13:45 11/17/18 14:00 Lab Results 11/17/18 11/17/18 11/17/18 Range/Units 13:45 13:45 13:45 WBC 6.7 (4.3-11.1) K/mcL RBC 5.16 (4.19-5.50) M/mcL Hgb 16.6 (12.9-16.9) g/dL Hct 49.5 (37.5-50.1) % MCV 95.9 (83.0-100.0) fL MCH 32.2 (28.0-33.3) pg MCHC 33.5 (31.6-35.5) g/dL RDW 13.6 (11.5-14.5) % Plt Count 150 (140-400) K/mcL MPV 9.5 (9.4-12.4) fL Immature Gran % 0.3 (0-4) % Seg Neutrophils % 86.4 % Lymphocytes % 6.0 % Monocytes % 5.7 % Eosinophils % 1.3 % Basophils % 0.3 % Neutrophils # 5.8 (1.6-8.9) K/mcL Lymphocytes # 0.4 L (0.6-4.6) K/mcL Monocytes # 0.4 (0.0-1.3) K/mcL Eosinophils # 0.1 (0.0-0.6) K/mcL Basophils # 0.0 (0.0-0.2) K/mcL PT 25.5 H (9.4-12.1) Seconds INR 2.3 Sodium (136-145) mEq/L Potassium (3.5-5.1) mEq/L Chloride (98-107) mEq/L Carbon Dioxide (23-29) mEq/L BUN (8-23) mg/dL Creatinine (0.70-1.30) mg/dL Est GFR ( Amer) (> 60) Est GFR (Non-Af Amer) (> 60) BUN/Creatinine Ratio (6-26) Glucose (70-105) mg/dL Calculated Osmolality (280-300) Lactic Acid 1.2 (0.5-2.2) mmol/L Calcium (8.6-10.3) mg/dL 11/17/18 Range/Units 14:00 WBC (4.3-11.1) K/mcL RBC (4.19-5.50) M/mcL Hgb (12.9-16.9) g/dL Hct (37.5-50.1) % MCV (83.0-100.0) fL MCH (28.0-33.3) pg MCHC (31.6-35.5) g/dL RDW (11.5-14.5) % Plt Count (140-400) K/mcL MPV (9.4-12.4) fL Immature Gran % (0-4) % Seg Neutrophils % % Lymphocytes % % Monocytes % % Eosinophils % % Basophils % % Neutrophils # (1.6-8.9) K/mcL Lymphocytes # (0.6-4.6) K/mcL Monocytes # (0.0-1.3) K/mcL Eosinophils # (0.0-0.6) K/mcL Basophils # (0.0-0.2) K/mcL PT (9.4-12.1) Seconds INR Sodium 137 (136-145) mEq/L Potassium 3.7 (3.5-5.1) mEq/L Chloride 101 (98-107) mEq/L Carbon Dioxide 28 (23-29) mEq/L BUN 13 (8-23) mg/dL Creatinine 1.11 (0.70-1.30) mg/dL Est GFR ( Amer) > 60 (> 60) Est GFR (Non-Af Amer) > 60 (> 60) BUN/Creatinine Ratio 12 (6-26) Glucose 139 H (70-105) mg/dL Calculated Osmolality 286 (280-300) Lactic Acid (0.5-2.2) mmol/L Calcium 9.4 (8.6-10.3) mg/dL - Radiology Data Radiology results reviewed: Yes I reviewed the patient's radiology results. Single view chest x-ray is performed. This does not demonstrate evidence for infiltrate, effusion, pneumothorax, foreign body or heart failure. The cardiac silhouette is normal. Patient has a poor inspiration and some mild atelectasis in the left base. I do not see abnormality to the osseous structures of the chest. This is on my interpretation. Impressions Chest X-Ray 11/17/18 13:32 IMPRESSION: There is left basilar airspace disease, which was also noted in February of 2018, though is decreased on today's examination. Uncertain if this could represent pneumonia or atelectasis. Consider follow-up to resolution. D/ / Alek Velasquez MD / Alek Velasquez MD Interpreting Provider: Alek Velasquez MD
[2018-11-17] MEDS ORDERED: cefTRIAXone 2,000 MG in 0.9 % Sodium Chloride Mini Bag 100 ML IVPB ONE (14:05)
[2018-11-17] MEDS ORDERED: 0.9 % Sodium Chloride 1,000 ML IVC ONE (14:05)
[2018-11-17] MEDS ORDERED: Azithromycin 500 MG in D5% in Water 250 ML IVPB ONE ×2 (14:05→15:01)
[2018-11-17] MEDS ORDERED: Acetaminophen 325 MG TABLET PO ONE (14:10)
[2018-11-17 14:15] LABS: Basophils % 0.3 %; Eosinophils # 0.1 K/mcL (0.0-0.6); Eosinophils % 1.3 %; Hematocrit 49.5 % (37.5-50.1); Hemoglobin 16.6 g/dL (12.9-16.9); Immature Granulocytes % 0.3 % (0-4); Lymphocytes # 0.4 K/mcL (0.6-4.6); Mean Corpuscular HGB Conc 33.5 g/dL (31.6-35.5); Mean Corpuscular Hemoglobin 32.2 pg (28.0-33.3); Mean Corpuscular Volume 95.9 fL (83.0-100.0); Mean Platelet Volume 9.5 fL (9.4-12.4); Monocytes # 0.4 K/mcL (0.0-1.3); Monocytes % 5.7 %; Neutrophils # 5.8 K/mcL (1.6-8.9); Platelet Count 150 K/mcL (140-400); Red Blood Count 5.16 M/mcL (4.19-5.50); Red Cell Distribution Width 13.6 % (11.5-14.5); Segmented Neutrophils % 86.4 %
[2018-11-17] MEDS ORDERED: 0.9 % Sodium Chloride 1,000 ML IVC SCH (14:15)
[2018-11-17 14:17] LABS: INR 2.3; Prothrombin Time 25.5 Seconds (9.4-12.1)
[2018-11-17 14:28] LABS: BUN/Creatinine Ratio 12 (6-26); Blood Urea Nitrogen 13 mg/dL (8-23); Calcium 9.4 mg/dL (8.6-10.3); Carbon Dioxide 28 mEq/L (23-29); Chloride 101 mEq/L (98-107); Glucose 139 mg/dL (70-105); Osmolality,Calculated 286 (280-300); Potassium 3.7 mEq/L (3.5-5.1); Sodium 137 mEq/L (136-145); eGFR For Non-African Americans > 60 (> 60)
[2018-11-17] MEDS ORDERED: Albuterol 2.5 MG/3 ML NEBULIZER IH PRN (15:01)
[2018-11-17] MEDS ORDERED: Naloxone 0.4 MG/ML INJ IVP PRN (15:01)
[2018-11-17] MEDS: Ipratropium/Albuterol Neb 3 ML IH SCH ×2 (16:43→22:25)
[2018-11-17] MEDS: *HR* Warfarin 3 MG TABLET PO SCH (17:20)
[2018-11-17] MEDS: Acetaminophen 325 MG TABLET PO SCH ×2 (17:20→23:45)
--- NOTE | 2018-11-17 18:01 | Internal Med History&Physical ---
Date of Encounter: 11/17/18 Time of Encounter: 17:30 Assessment and Plan (1) Influenza A Current visit: Yes Status: Acute He has been started on Tamiflu. (2) Left lower lobe pneumonia Current visit: Yes Status: Acute Uncertain if chronic lung changes from previous infection or acute pneumonia. Rocephin and Zithromax were given in emergency room. Will change Zithromax to doxycycline to cover MRSA since he has influenza. Qualifiers: Pneumonia type: due to unspecified organism Qualified Code(s): J18.1 - Lobar pneumonia, unspecified organism (3) DVT (deep venous thrombosis) Current visit: No Status: Acute Continue Coumadin. Qualifiers: DVT location: lower extremity Affected thrombotic vein of extremity: unspecified vein of extremity Chronicity: acute Laterality: unspecified laterality Qualified Code(s): I82.409 - Acute embolism and thrombosis of unspecified deep veins of unspecified lower extremity (4) Weight loss Current visit: Yes Status: Acute Check TSH in a.m. I discussed with his that he has lost approximately 6 kg weight since July 2017 and has had at least 2 unprovoked DVT/PE. She reports an appointment has been made for 11/21/2018 for hematology/oncology evaluation. Internal Medicine - H&P: HPI Chief complaint: Cough, fever, influenza A Plans for Post Hospital Care: Home History of present illness: Mr. Garcia is a 78 year old male who developed worsening cough with minimal productivity and fever to 100.8 in the last 1-2 days. Family was concerned he might be developing pneumonia so he was brought to emergency room. Workup showed evidence of influenza A . Chest x-ray showed left basilar airspace disease but slightly improved from February 2018 x-ray. WBC was normal there was left shift on differential. He was admitted to [facility] floor for ongoing care needs. He has dementia and is nonverbal at this time. Respiratory history is pertinent for him being a lifelong nonsmoker and having no known chronic lung disease. Past Med Surg Social Fam HX - Past Medical History Medical history: dementia, kidney stones, pulmonary embolus, seizures Additional medical history: recurrent pneumonia Psychiatric history: depression - Past Surgical History Surgical History: no surgical history Additional surgical history: bleeding ulcer reapir. - Social History Smoking Status: Never smoker Smokeless Tobacco Status: No Alcohol use: none Drug use: none - Family History Mother Living Status: Hx Family Cancer: Yes Father Living Status: Hx Family Cardiac Disorders: Yes ([place], CAD) Hx Family Neurologic Disorders: Yes (dementia) Internal Medicine - H&P: Meds Folic Acid 1 mg PO DAILY 02/15/18 [History] Lovastatin [Altoprev] 20 mg PO HS 02/15/18 [History] Cyanocobalamin (Vitamin B-12) [Vitamin B12] 1,000 mcg PO DAILY 08/28/18 [History] Phenytoin ER [Dilantin ER] 200 mg PO HS 08/28/18 [History] Bulmaro-Citrate Plus Vitamin D Tab 09/12/18 [History] Warfarin [Coumadin] 6 mg PO DAILY 11/17/18 [History] Allergy/AdvReac Type Severity Reaction Status Date / Time No Known Allergies Allergy Verified 09/12/18 15:19 All Systems PM: A 10-system review of systems was performed and is negative for pertinent findings except as documented above in the HPI. Review of systems: Review of systems from his July 2017 [facility] hospitalization were reviewed and revised as below. Gen.: His weight has decreased from 98.852 kg on 08/09/2017 to 90.718 kg on admission now. Cardiovascular: There is no history of hypertension NC or heart failure. He had PE diagnosed during a July 2017 hospitalization and was placed on Xarelto at discharge. Family reports a DVT was found earlier this year in his right leg. He is now on Coumadin. Hypercoagulable workup was negative July 2017. Respiratory: As per history of present illness GI: He had an ulcer of the stomach approximately 2015. EGD was done at a [facility] where he was referred with no known malignancy found. They deny known disorders of his liver gallbladder or exocrine pancreas. : No history of hematuria dysuria or kidney stones Neurologic: He was diagnosed with dementia in 2010. He has had no large distribution strokes or seizures. Endocrine: He has hyperlipidemia but no known diabetes or thyroid disease Hematology/oncology: No history of blood disorders cancers or anemia Psychiatric: He has occasional agitation. He does not have history of mental health issues. [place] skeletal: He has minimal arthritis and has complained of leg cramps in the past. He does not have known gout. - Constitutional Vitals: Temp Pulse Resp BP Pulse Ox 100.8 F H 102 16 98/64 94 11/17/18 16:24 11/17/18 16:24 11/17/18 16:43 11/17/18 16:24 11/17/18 16:43 Exam: Gen.: He is a well-developed well-nourished male resting comfortably in bed. He does not follow commands. HEENT: Head is atraumatic and normal cephalic. Eyes: He does not open his eyes for examination. Mouth: He does not open his mouth for examination. Neck: There is no thyromegaly or adenopathy noted. Heart: Regular without murmurs gallops or ectopics Lungs: No wheezes or crackles are heard. Abdomen: Soft and nontender. No masses or guarding are noted. Extremities: He is wearing LUCIANA hose bilaterally which I did not remove. There is no pitting edema palpated through the LUCIANA hose. Neurologic: Mental status: He does not follow commands and is nonverbal. Cranial nerves: Facial movements are minimal. There appears to be facial symmetry at rest. Motor: There is no cogwheeling or rigidity on passive range of motion. No further neurologic assessment is attempted. Skin: Warm and dry Internal Med - H&P Results - Labs CBC & Chem 7: 11/17/18 13:45 11/17/18 14:00 Labs: Short CBC 11/17/18 Range/Units 13:45 WBC 6.7 (4.3-11.1) K/mcL Hgb 16.6 (12.9-16.9) g/dL Hct 49.5 (37.5-50.1) % Plt Count 150 (140-400) K/mcL Neutrophils # 5.8 (1.6-8.9) K/mcL BMP 11/17/18 14:00 Sodium 137 Potassium 3.7 Chloride 101 Carbon Dioxide 28 BUN 13 Creatinine 1.11 Glucose 139 H Calcium 9.4 - Impressions ITS Impressions Chest X-Ray 11/17/18 13:32 IMPRESSION: There is left basilar airspace disease, which was also noted in February of 2018, though is decreased on today's examination. Uncertain if this could represent pneumonia or atelectasis. Consider follow-up to resolution. D/ / Alek Velasquez MD / Alek Velasquez MD Interpreting Provider: Alek Velasquez MD
[2018-11-17] MEDS ORDERED: Ondansetron 4 MG/2 ML VIAL IVP PRN (18:16)
[2018-11-17] MEDS: Doxycycline 100 MG in 0.9 % Sodium Chloride Mini Bag 100 ML IVPB SCH (19:27)
[2018-11-17] MEDS: Lactobacillus 1 EACH CAP.SPRINK PO SCH (19:29)
[2018-11-17] MEDS: 0.9 % Sodium Chloride 1,000 ML IVC SCH (22:54)
[2018-11-18] MEDS: Ipratropium/Albuterol Neb 3 ML IH SCH ×4 (04:18→21:37)
[2018-11-18 05:17] LABS: Basophils % 0.3 %; Eosinophils # 0.1 K/mcL (0.0-0.6); Eosinophils % 0.8 %; Hematocrit 43.3 % (37.5-50.1); Hemoglobin 14.1 g/dL (12.9-16.9); Immature Granulocytes % 0.3 % (0-4); Lymphocytes # 1.6 K/mcL (0.6-4.6); Lymphocytes % 26.6 %; Mean Corpuscular HGB Conc 32.6 g/dL (31.6-35.5); Mean Corpuscular Hemoglobin 31.5 pg (28.0-33.3); Mean Corpuscular Volume 96.9 fL (83.0-100.0); Mean Platelet Volume 9.7 fL (9.4-12.4); Monocytes # 0.7 K/mcL (0.0-1.3); Monocytes % 10.8 %; Neutrophils # 3.8 K/mcL (1.6-8.9); Platelet Count 115 K/mcL (140-400); Red Blood Count 4.47 M/mcL (4.19-5.50); Red Cell Distribution Width 14.1 % (11.5-14.5); Segmented Neutrophils % 61.2 %
[2018-11-18 05:37] LABS: Alanine Aminotransferase 23 Units/L (7-52); Albumin 3.7 g/dL (3.5-5.7); Albumin/Globulin Ratio 1.3 (1.1-2.2); Alkaline Phosphatase 75 Units/L (34-104); Aspartate Amino Transferase 24 Units/L (13-39); BUN/Creatinine Ratio 12 (6-26); Bilirubin,Total 0.4 mg/dL (0.3-1.0); Blood Urea Nitrogen 14 mg/dL (8-23); Calcium 8.2 mg/dL (8.6-10.3); Carbon Dioxide 27 mEq/L (23-29); Chloride 106 mEq/L (98-107); Globulin 2.8 g/dL (2.4-3.5); Glucose 116 mg/dL (70-105); Osmolality,Calculated 287 (280-300); Potassium 3.8 mEq/L (3.5-5.1); Sodium 138 mEq/L (136-145); Total Protein 6.5 g/dL (6.4-8.9); eGFR For Non-African Americans > 60 (> 60)
[2018-11-18] MEDS: Acetaminophen 325 MG TABLET PO SCH ×3 (05:53→16:35)
[2018-11-18] MEDS: Doxycycline 100 MG in 0.9 % Sodium Chloride Mini Bag 100 ML IVPB SCH ×2 (05:54→18:14)
[2018-11-18] MEDS: 0.9 % Sodium Chloride 1,000 ML IVC SCH (05:56)
[2018-11-18] MEDS ORDERED: Azithromycin 500 MG in D5% in Water 250 ML IVPB SCH (09:00)
[2018-11-18] MEDS ORDERED: cefTRIAXone 2,000 MG in 0.9 % Sodium Chloride Mini Bag 100 ML IVPB SCH (09:00)
[2018-11-18] MEDS: Folic Acid 1 MG TABLET PO SCH (09:23)
[2018-11-18] MEDS: Lactobacillus 1 EACH CAP.SPRINK PO SCH ×3 (09:23→22:22)
--- NOTE | 2018-11-18 10:12 | Internal Med Progress Note ---
Date of Encounter: 11/18/18 Time of Encounter: 10:05 - Assessment and plan (1) Influenza A Current Visit: Yes Status: Acute Assessment and plan: November 18. Continue Tamiflu. (2) Left lower lobe pneumonia Current Visit: Yes Status: Acute Assessment and plan: October 29. Continue Rocephin and doxycycline with lactobacillus. Qualifiers: Pneumonia type: due to unspecified organism Qualified Code(s): J18.1 - Lobar pneumonia, unspecified organism (3) DVT (deep venous thrombosis) Current Visit: No Status: Acute Assessment and plan: November 18. Continue Coumadin Qualifiers: DVT location: lower extremity Affected thrombotic vein of extremity: unspecified vein of extremity Chronicity: acute Laterality: unspecified laterality Qualified Code(s): I82.409 - Acute embolism and thrombosis of unspecified deep veins of unspecified lower extremity (4) Weight loss Current Visit: Yes Status: Acute Assessment and plan: November 18. TSH was normal at 3.30. Appointment with hematology/oncology on 11/21/2018. - Subjective Interval history: November 18. No new problems have arisen. He has continued to spike fever and had hypotension last evening. - Constitutional Vitals: Temp Pulse Resp BP Pulse Ox 100.9 F H 88 20 99/73 97 11/18/18 07:13 11/18/18 07:13 11/18/18 07:13 11/18/18 07:13 11/18/18 07:13 Exam: He is receiving a nebulizer treatment at present time. His eyes are closed. I reviewed his medications and lab results. I discussed his status with his . Internal Medicine: Result - Labs CBC & Chem 7: 11/18/18 04:40 11/18/18 04:40 Labs: Short CBC 11/17/18 11/18/18 Range/Units 13:45 04:40 WBC 6.7 6.1 (4.3-11.1) K/mcL Hgb 16.6 14.1 D (12.9-16.9) g/dL Hct 49.5 43.3 (37.5-50.1) % Plt Count 150 115 L (140-400) K/mcL Neutrophils # 5.8 3.8 (1.6-8.9) K/mcL BMP 11/17/18 11/18/18 14:00 04:40 Sodium 137 138 Potassium 3.7 3.8 Chloride 101 106 Carbon Dioxide 28 27 BUN 13 14 Creatinine 1.11 1.15 Glucose 139 H 116 H Calcium 9.4 8.2 L Liver Function 11/18/18 Range/Units 04:40 Total Bilirubin 0.4 (0.3-1.0) mg/dL AST 24 (13-39) Units/L ALT 23 (7-52) Units/L Alkaline Phosphatase 75 (34-104) Units/L Albumin 3.7 (3.5-5.7) g/dL - ABG Interpretation ABG results: PT/INR, D-dimer PT 25.5 Seconds (9.4-12.1) H 11/17/18 13:45 - Impressions Impressions Chest X-Ray 11/17/18 13:32 IMPRESSION: There is left basilar airspace disease, which was also noted in February of 2018, though is decreased on today's examination. Uncertain if this could represent pneumonia or atelectasis. Consider follow-up to resolution. D/ / Alek Velasquez MD / Alek Velasquez MD Interpreting Provider: Alek Velasquez MD - VTE Documentation of Mechanical Device: Intermittent pneumatic compression device Consult Discharge Plan - Plan Referrals: Jean Pierre Rahman MD [Primary Care Provider] - 1 week
[2018-11-18] MEDS ORDERED: 0.9 % Sodium Chloride 1,000 ML IVC ONE (16:00)
[2018-11-18] MEDS ORDERED: Acetaminophen 650 MG RECTAL SUPP RC ONE (16:34)
[2018-11-18] MEDS: *HR* Warfarin 3 MG TABLET PO SCH (18:13)
[2018-11-19] MEDS: Acetaminophen 325 MG TABLET PO SCH ×4 (02:48→17:11)
[2018-11-19] MEDS: Acetaminophen 650 MG RECTAL SUPP RC PRN ×2 (03:03→08:46)
[2018-11-19] MEDS: Ipratropium/Albuterol Neb 3 ML IH SCH ×4 (05:08→22:32)
[2018-11-19 05:09] LABS: Basophils % 0.4 %; Eosinophils % 0.2 %; Hematocrit 40.3 % (37.5-50.1); Hemoglobin 13.2 g/dL (12.9-16.9); Immature Granulocytes % 0.2 % (0-4); Lymphocytes # 0.6 K/mcL (0.6-4.6); Lymphocytes % 11.9 %; Mean Corpuscular HGB Conc 32.8 g/dL (31.6-35.5); Mean Corpuscular Hemoglobin 31.5 pg (28.0-33.3); Mean Corpuscular Volume 96.2 fL (83.0-100.0); Mean Platelet Volume 9.9 fL (9.4-12.4); Monocytes # 0.5 K/mcL (0.0-1.3); Monocytes % 10.5 %; Neutrophils # 3.9 K/mcL (1.6-8.9); Platelet Count 100 K/mcL (140-400); Red Blood Count 4.19 M/mcL (4.19-5.50); Red Cell Distribution Width 13.9 % (11.5-14.5); Segmented Neutrophils % 76.8 %
[2018-11-19] MEDS: Doxycycline 100 MG in 0.9 % Sodium Chloride Mini Bag 100 ML IVPB SCH ×2 (06:15→17:09)
[2018-11-19] MEDS: Folic Acid 1 MG TABLET PO SCH (08:33)
[2018-11-19] MEDS: Lactobacillus 1 EACH CAP.SPRINK PO SCH ×2 (08:33→22:39)
--- NOTE | 2018-11-19 08:34 | Internal Med Progress Note ---
Date of Encounter: 11/19/18 Time of Encounter: 08:20 - Assessment and plan (1) Influenza A Current Visit: Yes Status: Acute Assessment and plan: November 18. Continue Tamiflu. (2) Left lower lobe pneumonia Current Visit: Yes Status: Acute Assessment and plan: October 29. Continue Rocephin and doxycycline with lactobacillus. Qualifiers: Pneumonia type: due to unspecified organism Qualified Code(s): J18.1 - Lobar pneumonia, unspecified organism (3) DVT (deep venous thrombosis) Current Visit: No Status: Acute Assessment and plan: November 18. Continue Coumadin Qualifiers: DVT location: lower extremity Affected thrombotic vein of extremity: unspecified vein of extremity Chronicity: acute Laterality: unspecified laterality Qualified Code(s): I82.409 - Acute embolism and thrombosis of unspecified deep veins of unspecified lower extremity (4) Weight loss Current Visit: Yes Status: Acute Assessment and plan: November 18. TSH was normal at 3.30. Appointment with hematology/oncology on 11/21/2018. (5) Seizure disorder, complex partial Current Visit: No Status: Acute Assessment and plan: November 19. Dilantin dose was increased yesterday after blood level following his seizure was found to be subtherapeutic. Qualifiers: Epilepsy type: partial symptomatic Intractability: not intractable Status epilepticus: without status epilepticus Qualified Code(s): G40.209 - Localization-related (focal) (partial) symptomatic epilepsy and epileptic syndromes with complex partial seizures, not intractable, without status epilepticus - Subjective Interval history: November 18. No new problems have arisen. He has continued to spike fever and had hypotension last evening. November 19. He had a seizure yesterday after transferring from bed to chair. His reports his initial seizure was approximately one year ago and has had ~ 5 seizures in the past year. Head CT 08/28/2018 showed no acute abnormality. - Constitutional Vitals: Temp Pulse Resp BP Pulse Ox 101 F H 100 18 122/72 90 11/19/18 06:02 11/19/18 06:02 11/19/18 06:02 11/19/18 06:02 11/19/18 06:02 Exam: He is sitting in bed and appears in no acute distress. He has audible secretions in his upper airways. Heart rate is approximately 100/m. Oxygen saturation is 98%. I reviewed his medications and lab results. Internal Medicine: Result - Labs CBC & Chem 7: 11/19/18 04:21 11/18/18 04:40 Labs: Short CBC 11/19/18 Range/Units 04:21 WBC 5.1 (4.3-11.1) K/mcL Hgb 13.2 (12.9-16.9) g/dL Hct 40.3 (37.5-50.1) % Plt Count 100 L (140-400) K/mcL Neutrophils # 3.9 (1.6-8.9) K/mcL - ABG Interpretation ABG results: PT/INR, D-dimer PT 25.5 Seconds (9.4-12.1) H 11/17/18 13:45 - VTE Documentation of Mechanical Device: Intermittent pneumatic compression device Consult Discharge Plan - Plan Referrals: Jean Pierre Rahman MD [Primary Care Provider] - 1 week
[2018-11-19] MEDS: cefTRIAXone 2,000 MG in Water for inj. (sterile) 20 ML 20 ML IVPB SCH (08:55)
[2018-11-19] MEDS ORDERED: Ketorolac 30 MG/ML VIAL IM ONE (13:06)
[2018-11-19] MEDS ORDERED: Ketorolac 30 MG/ML VIAL IVP ONE (13:30)
[2018-11-19] MEDS: 0.9 % Sodium Chloride 1,000 ML IVC SCH (15:56)
[2018-11-19] MEDS: *HR* Warfarin 3 MG TABLET PO SCH (17:13)
[2018-11-20] MEDS: 0.9 % Sodium Chloride 1,000 ML IVC SCH (03:23)
[2018-11-20] MEDS: Ipratropium/Albuterol Neb 3 ML IH SCH (05:09)
[2018-11-20] MEDS: Doxycycline 100 MG in 0.9 % Sodium Chloride Mini Bag 100 ML IVPB SCH ×2 (06:04→18:15)
[2018-11-20] MEDS: Acetaminophen 325 MG TABLET PO SCH ×3 (06:06→11:12)
[2018-11-20 06:12] LABS: Basophils % 0.4 %; Eosinophils # 0.1 K/mcL (0.0-0.6); Hematocrit 37.6 % (37.5-50.1); Hemoglobin 12.2 g/dL (12.9-16.9); Lymphocytes % 42.3 %; Mean Corpuscular HGB Conc 32.4 g/dL (31.6-35.5); Mean Corpuscular Hemoglobin 31.6 pg (28.0-33.3); Mean Corpuscular Volume 97.4 fL (83.0-100.0); Mean Platelet Volume 9.8 fL (9.4-12.4); Monocytes # 0.2 K/mcL (0.0-1.3); Monocytes % 9.5 %; Red Blood Count 3.86 M/mcL (4.19-5.50); Segmented Neutrophils % 42.8 %
[2018-11-20 06:19] LABS: Platelet Count 93 K/mcL (140-400)
[2018-11-20 06:33] LABS: INR 3.2; Prothrombin Time 36.5 Seconds (9.4-12.1)
[2018-11-20 06:46] LABS: BUN/Creatinine Ratio 13 (6-26); Blood Urea Nitrogen 13 mg/dL (8-23); Calcium 7.7 mg/dL (8.6-10.3); Carbon Dioxide 26 mEq/L (23-29); Chloride 107 mEq/L (98-107); Glucose 109 mg/dL (70-105); Osmolality,Calculated 287 (280-300); Potassium 3.1 mEq/L (3.5-5.1); Sodium 138 mEq/L (136-145); eGFR For Non-African Americans > 60 (> 60)
[2018-11-20] MEDS: Lactobacillus 1 EACH CAP.SPRINK PO SCH ×2 (08:37→20:56)
[2018-11-20] MEDS: Folic Acid 1 MG TABLET PO SCH (08:38)
[2018-11-20] MEDS: cefTRIAXone 2,000 MG in Water for inj. (sterile) 20 ML 20 ML IVPB SCH (08:45)
--- NOTE | 2018-11-20 09:35 | Internal Med Progress Note ---
Date of Encounter: 11/20/18 Time of Encounter: 09:25 - Assessment and plan (1) Influenza A Current Visit: Yes Status: Acute Assessment and plan: November 18. Continue Tamiflu. November 20. Continue present therapy. Anticipate discharge home tomorrow if stable. (2) Left lower lobe pneumonia Current Visit: Yes Status: Acute Assessment and plan: October 29. Continue Rocephin and doxycycline with lactobacillus. Qualifiers: Pneumonia type: due to unspecified organism Qualified Code(s): J18.1 - Lobar pneumonia, unspecified organism (3) DVT (deep venous thrombosis) Current Visit: No Status: Acute Assessment and plan: November 18. Continue Coumadin Qualifiers: DVT location: lower extremity Affected thrombotic vein of extremity: unspecified vein of extremity Chronicity: acute Laterality: unspecified laterality Qualified Code(s): I82.409 - Acute embolism and thrombosis of unspecified deep veins of unspecified lower extremity (4) Weight loss Current Visit: Yes Status: Acute Assessment and plan: November 18. TSH was normal at 3.30. Appointment with hematology/oncology on 11/21/2018. (5) Seizure disorder, complex partial Current Visit: No Status: Acute Assessment and plan: November 19. Dilantin dose was increased yesterday after blood level following his seizure was found to be subtherapeutic. Qualifiers: Epilepsy type: partial symptomatic Intractability: not intractable Status epilepticus: without status epilepticus Qualified Code(s): G40.209 - Localization-related (focal) (partial) symptomatic epilepsy and epileptic syndromes with complex partial seizures, not intractable, without status epilepticus - Subjective Interval history: November 18. No new problems have arisen. He has continued to spike fever and had hypotension last evening. November 19. He had a seizure yesterday after transferring from bed to chair. His reports his initial seizure was approximately one year ago and has had ~ 5 seizures in the past year. Head CT 08/28/2018 showed no acute abnormality. November 20. No new problems have arisen. - Constitutional Vitals: Temp Pulse Resp BP Pulse Ox 97.4 F L 77 20 124/74 97 11/20/18 07:46 11/20/18 07:46 11/20/18 07:46 11/20/18 07:46 11/20/18 07:46 Exam: He is sitting in a chair at bedside resting comfortably. He is nonverbal but is interacting with family and smiling. I reviewed his medications and lab results. Internal Medicine: Result - Labs CBC & Chem 7: 11/20/18 05:45 11/20/18 05:45 Labs: Short CBC 11/20/18 Range/Units 05:45 WBC 2.4 L D (4.3-11.1) K/mcL Hgb 12.2 L (12.9-16.9) g/dL Hct 37.6 (37.5-50.1) % Plt Count 93 L (140-400) K/mcL Neutrophils # 1.0 L (1.6-8.9) K/mcL BMP 11/20/18 05:45 Sodium 138 Potassium 3.1 L Chloride 107 Carbon Dioxide 26 BUN 13 Creatinine 0.97 Glucose 109 H Calcium 7.7 L - ABG Interpretation ABG results: PT/INR, D-dimer PT 36.5 Seconds (9.4-12.1) H 11/20/18 05:45 - VTE Documentation of Mechanical Device: Intermittent pneumatic compression device Consult Discharge Plan - Plan Referrals: Jean Pierre Rahman MD [Primary Care Provider] - 1 week
[2018-11-20] MEDS: Potassium Chloride Elixir 20 MEQ/15 ML UDC PO SCH ×2 (11:11→20:56)
[2018-11-20] MEDS: *HR* Warfarin 3 MG TABLET PO SCH (18:13)
[2018-11-20] MEDS ORDERED: Potassium Chloride Elixir 20 MEQ/15 ML UDC PO SCH (21:00)
[2018-11-21] MEDS: 0.9 % Sodium Chloride 1,000 ML IVC SCH ×2 (05:27→05:28)
[2018-11-21] MEDS: Doxycycline 100 MG in 0.9 % Sodium Chloride Mini Bag 100 ML IVPB SCH (06:00)
[2018-11-21 06:29] VITALS: BP 124/78
[2018-11-21] MEDS: Folic Acid 1 MG TABLET PO SCH (08:03)
[2018-11-21] MEDS: Lactobacillus 1 EACH CAP.SPRINK PO SCH (08:03)
[2018-11-21] MEDS: Potassium Chloride Elixir 20 MEQ/15 ML UDC PO SCH (08:03)
[2018-11-21] MEDS: cefTRIAXone 2,000 MG in Water for inj. (sterile) 20 ML 20 ML IVPB SCH (08:04)
--- NOTE | 2018-11-21 08:59 | Discharge Summary ---
Orders not resulted at time of discharge: Pending orders 11/17/18 13:45 Culture,Blood [] Stat Date of Encounter: 11/21/18 Time of Encounter: 08:47 - Discharge Diagnosis (1) Influenza A Priority: Primary Status: Acute (2) Left lower lobe pneumonia Priority: Secondary Status: Acute Qualifiers: Pneumonia type: due to unspecified organism Qualified Code(s): J18.1 - Lobar pneumonia, unspecified organism (3) DVT (deep venous thrombosis) Priority: Secondary Status: Acute Qualifiers: DVT location: lower extremity Affected thrombotic vein of extremity: unspecified vein of extremity Chronicity: acute Laterality: unspecified laterality Qualified Code(s): I82.409 - Acute embolism and thrombosis of unspecified deep veins of unspecified lower extremity (4) Weight loss Priority: Secondary Status: Acute (5) Seizure disorder, complex partial Priority: Secondary Status: Acute Qualifiers: Epilepsy type: partial symptomatic Intractability: not intractable Status epilepticus: without status epilepticus Qualified Code(s): G40.209 - Locali zation-related (focal) (partial) symptomatic epilepsy and epileptic syndromes with complex partial seizures, not intractable, without status epilepticus Hospital course: Mr. Garcia is a 78 year old male who developed worsening cough with minimal productivity and fever to 100.8 in the 1-2 days preceding admission. Family was concerned he might be developing pneumonia so he was brought to emergency room. Workup showed evidence of influenza A . Chest x-ray showed left basilar airspace disease but slightly improved from February 2018 x-ray. WBC was normal there was left shift on differential. He was admitted to [facility] floor for ongoing care needs. Initial orders were written by the emergency room physician. I saw him on November 17 and performed a history and physical. He was started on Tamiflu for influenza A. Rocephin and Zithromax were given in emergency room. Zithromax was changed to doxycycline to cover possible MRSA. He spike fevers intermittent ly until the afternoon of November 19 and remained essentially afebrile afterward. WBC decreased to leukopenia with WBC 2.4 on November 20 but resolution of left shift likely reflecting viral infection. He had a grand mal seizure November 18. Dilantin level was found to be subtherapeutic at 1.6. Dilantin dose was increased to 400 mg daily. His PCP can monitor Dilantin levels. Hemoglobin decreased with IV fluids to 12.2 on November 20. His PCP can monitor this. Potassium level decreased to 3.1 on November 20. He was given supplemental potassium during hospitalization but will not continue potassium supplementation at discharge. His PCP can monitor labs. On November 21 he was stable for discharge home. He will continue with antibiotic, probiotic, and Tamiflu for 2 additional days at discharge. He will be seen by his PCP Dr. Jean Pierre Rahman within 1 week. He will have an appointment this afternoon at hematology/oncology at [facility] for evaluation for weight loss and unprovoked DVTs. - Time Spent with Patient Total time spent providing and/or coordinating discharge services: - Discharge Medications Prescriptions: Cefuroxime PO [Ceftin] 500 mg PO Q12HR #4 tablet Doxycycline 100 mg PO BID #4 capsule Lactobacillus [Culturelle] 1 each PO BID #4 cap.sprink Oseltamivir [Tamiflu] 75 mg PO BID #4 capsule Phenytoin ER [Dilantin ER] 400 mg PO HS #120 capsule Home Medications: Folic Acid 1 mg PO DAILY 02/15/18 [History] Lovastatin [Altoprev] 20 mg PO HS 02/15/18 [History] Cyanocobalamin (Vitamin B-12) [Vitamin B12] 1,000 mcg PO DAILY 08/28/18 [History] Bulmaro-Citrate Plus Vitamin D Tab 09/12/18 [History] Warfarin [Coumadin] 6 mg PO DAILY 11/17/18 [History] Cefuroxime PO [Ceftin] 500 mg PO Q12HR #4 tablet 11/21/18 [Rx] Doxycycline 100 mg PO BID #4 capsule 11/21/18 [Rx] Lactobacillus [Culturelle] 1 each PO BID #4 cap.sprink 11/21/18 [Rx] Oseltamivir [Tamiflu] 75 mg PO BID #4 capsule 11/21/18 [Rx] Phenytoin ER [Dilantin ER] 400 mg PO HS #120 capsule 11/21/18 [Rx] Allergies/Adverse Reactions: Allergy/AdvReac Type Severity Reaction Status Date / Time No Known Allergies Allergy Verified 09/12/18 15:19 Date of admission: 11/19/18 18:15 Primary care physician: Jean Pierre Rhaman MD - Constitutional Vitals: Temp Pulse Resp BP Pulse Ox 99 F 84 16 124/78 96 11/21/18 06:00 11/21/18 06:00 11/21/18 06:00 11/21/18 06:00 11/21/18 06:00 - Patient Status Disposition: Home, Self-Care Condition: Fair - Discharge Instructions Follow Up With: Jean Pierre Rahman MD [Primary Care Provider] - 1 week - Diet and Activity Activity: resume usual activities as tolerated Diet: advance to your usual diet - VTE Documentation of Mechanical Device: Graduated compression elastic hosiery
== END 2018-11-21 10:09 | disposition home or self-care (01) | DRG 194 ==
LOC: EMEROOPIK 13:21 → INPPIK 13:21
PROVIDERS: ADMIT Internal Medicine; ATTEND Internal Medicine